=== PATIENT | female | born 1950 | race Caucasian/White ===

== ENCOUNTER → 2018-05-29 | Outpatient (CLI) | payer MEDICARE, BC ==
[~2018-05-29] MED LIST: FLUO20CA19 PO; SUMA100T3 PO
[2018-05-29 09:34] LABS: BASOPHILS # (AUTO) 0.04 x10^3/uL (0-0.1); BASOPHILS % (AUTO) 1 % (0-1); EOSINOPHILS # (AUTO) 0.22 x10^3/uL (0-0.4); EOSINOPHILS % (AUTO) 3 % (1-7); LYMPHOCYTES % (AUTO) 20 % (22-44); MD NO; MEAN CORPUSCULAR HEMOGLOBIN 30.3 pg (27.0-34.8); MEAN CORPUSCULAR HGB CONC 33.5 g/dL (32.4-35.8); MEAN CORPUSCULAR VOLUME 90.4 fL (80-100); MEAN PLATELET VOLUME 7.6 fL (7.4-10.4); MONOCYTES # (AUTO) 0.53 x10^3/uL (0.2-0.8); MONOCYTES % (AUTO) 8 % (2-9); NEUTROPHILS # (AUTO) 4.74 x10^3/uL (1.8-6.8); NEUTROPHILS % (AUTO) 69 % (42-75); PLATELET COUNT 306 x10^3/uL (130-400); RED BLOOD COUNT 4.75 x10^6/uL (3.82-5.3)
[2018-05-29 09:43] LABS: CHLORIDE 106 mmol/L (98-107)
[2018-05-29 09:44] LABS: ALANINE AMINOTRANSFERASE 50 U/L (12-78); ALBUMIN 3.8 g/dL (3.4-5.0); ANION GAP 7 mmol/L (5-15); CALCIUM 8.5 mg/dL (8.5-10.1); CREATININE 0.66 mg/dL (0.55-1.02)
[2018-05-29 09:46] LABS: ALKALINE PHOSPHATASE 83 U/L (45-117); BILIRUBIN,TOTAL 0.5 mg/dL (0.2-1.0)
== END | disposition home or self-care (01) ==
LOC: STAR 08:14
PROVIDERS: ATTEND Obstetrics & Gynecology Gynecology
DX: Z01.818 Encounter for other preprocedural examination (principal)
CPT/HCPCS: 36415; 71046; 80053; 85025; 93005

== ENCOUNTER 2018-06-04 05:37 | Day surgery (SDC) | payer MEDICARE, BC ==
[~2018-06-04] VITALS: Ht 160 cm; Wt 58.8 kg
[2018-06-04] MEDS ORDERED: LACTATED RINGERS 1,000 ML IV SCH (06:07)
[2018-06-04] MEDS ORDERED: ACETAMINOPHEN 500 MG TABLET PO ONE (07:00)
[2018-06-04] MEDS ORDERED: GABAPENTIN 300 MG CAPSULE PO ONE (07:00)
[2018-06-04] MEDS ORDERED: ONDANSETRON ODT 8 MG PO ONE (07:00)
[2018-06-04] MEDS ORDERED: LIDOCAINE 1%-EPI 1:100K, 30ML ONE (07:02)
[2018-06-04] MEDS ORDERED: NEOMY/POLYMYXIN B GU IRR. 1 ML IRRIG ONE (07:02)
[2018-06-04] MEDS ORDERED: FENTANYL PF 100 MCG/2ML ONE ×2 (07:02→09:39)
[2018-06-04] MEDS ORDERED: INDIGO CARMINE 0.8%, 5ML ONE (07:02)
[2018-06-04] MEDS ORDERED: PROPOFOL 10 MG/ML, 20ML ONE (07:02)
[2018-06-04] MEDS ORDERED: THROMBIN 5,000 UNIT VIAL TP ONE (07:02)
[2018-06-04] MEDS ORDERED: MIDAZOLAM 1 MG/ML, 2ML ONE (07:02)
[2018-06-04] MEDS ORDERED: DEXAMETHASONE 4 MG/ML, 1ML ONE ×2 (07:03)
[2018-06-04] MEDS ORDERED: LIDOCAINE-MPF 2% ,5ML ONE (07:03)
[2018-06-04] MEDS ORDERED: ROCURONIUM 10MG/ML,5ML ONE (07:03)
[2018-06-04] MEDS ORDERED: SUCCINYLCHOLINE 20 MG/ML, 10ML ONE (07:03)
[2018-06-04] MEDS ORDERED: EPHEDRINE 50 MG/ML, 1ML ONE (07:22)
[2018-06-04] MEDS ORDERED: HYDROmorphone 1 MG/ML, 1ML IV PRN (07:30)
[2018-06-04] MEDS ORDERED: MORPHINE SULFATE 4 MG/ML, 1ML IVPush PRN (07:30)
[2018-06-04] MEDS ORDERED: MEPERIDINE/PF 25MG/0.5ML IVPush PRN (07:30)
[2018-06-04] MEDS ORDERED: DIPHENHYDRAMINE 50 MG/ML, 1ML IVPush PRN (07:30)
[2018-06-04] MEDS ORDERED: ALBUTEROL SULFATE 2.5 MG/3 ML NPPB PRN (07:30)
[2018-06-04] MEDS ORDERED: DIAZEPAM 5 MG/ML, 2ML IVPush PRN (07:30)
[2018-06-04] MEDS ORDERED: LABETALOL 5MG/ML, 20ML IV PRN (07:30)
[2018-06-04] MEDS ORDERED: PROCHLORPERAZINE 5 MG/ML, 2ML IV PRN (07:30)
[2018-06-04] MEDS ORDERED: hydrALAzine 20 MG/ML, 1ML IV PRN (07:30)
[2018-06-04] MEDS ORDERED: LORazepam 2 MG/ML, 1ML IVPush PRN (07:30)
[2018-06-04] MEDS ORDERED: OXYcodone 5 MG/5 ML ORAL.SOL UDC PO PRN (07:30)
[2018-06-04] MEDS ORDERED: KETOROLAC 30 MG/1 ML IV PRN (07:30)
[2018-06-04] MEDS ORDERED: EPHEDRINE 50 MG/ML, 1ML IVPush PRN (07:30)
[2018-06-04] MEDS ORDERED: CEFAZOLIN 1,000 MG ONE ×2 (07:30)
[2018-06-04] MEDS ORDERED: METOPROLOL 1 MG/ML, 5ML IV PRN (07:30)
[2018-06-04] MEDS ORDERED: MIDAZOLAM 1 MG/ML, 2ML IV PRN (07:30)
[2018-06-04] MEDS ORDERED: FUROSEMIDE 20 MG/2 ML ONE (08:37)
[2018-06-04] MEDS ORDERED: KETOROLAC 30 MG/1 ML ONE (09:08)
[2018-06-04] MEDS ORDERED: OXYcodone 5 MG/5 ML ORAL.SOL UDC ONE (09:39)
[2018-06-04] MEDS: FENTANYL PF 100 MCG/2ML IV PRN ×3 (09:42→09:56)
[2018-06-04] MEDS ORDERED: KETOROLAC 30 MG/1 ML IVPush SCH (13:30)
[2018-06-04] MEDS ORDERED: ONDANSETRON 2MG/ML, 2ML IVPush PRN (13:30)
== END 2018-06-04 16:10 | disposition home or self-care (01) ==
LOC: OUT 05:37
PROVIDERS: ATTEND Obstetrics & Gynecology Gynecology
DX: N81.4 Uterovaginal prolapse, unspecified (principal); G43.909 Migraine, unspecified, not intractable, without status migrainosus; D25.9 Leiomyoma of uterus, unspecified; F32.9 Major depressive disorder, single episode, unspecified
CPT/HCPCS: 36415; 57260; 57282; 58270; 85014; 88305; J0330; J0690; J1100; J1885; J2250; J2704; J3010; J3490; J7120; Q0162; J1940